=== PATIENT | male | born 1960 | race Caucasian/White ===

== ENCOUNTER 2020-07-13 00:57 | Emergency (ER) | payer BC ==
[~2020-07-13] VITALS: Ht 177.8 cm; Wt 76.2 kg
[~2020-07-13 00:57] MED LIST: UNKNOWN BP MED
--- NOTE | 2020-07-13 01:00 | NUR ---
PT BIBWIFE C/O DIZZINESS X2HR LEGAL OFFICER. PT ALSO C/O NAUSEA/VOMITTING AND INTERMITTENT DIAPHORESIS. PT DENIES CP, SOB. PT AAOX4. VITAL SIGNS STABLE. RESPIRATIONS EVEN AND UNLABORED. SKIN INTACT. NO ACUTE DISTRESS NOTED AT THIS TIME. PLACED IN GOWN AND ON MONITOR, WILL CONTINUE TO MONITOR
--- NOTE | 2020-07-13 01:23 | NUR ---
IV INITIATED RAC 18G. LABS DRAWN FROM SITE. UI ARCHITECT AT BEDSIDE FOR COLLECTION. IV INTACT AND PATENT, PLACED ON SALINE LOCK
[2020-07-13 01:26] LABS: BASOPHILS # (AUTO) 0.1 /CMM (0.0-0.2); BASOPHILS % (AUTO) 0.8 % (0.0-2.0); EOSINOPHILS % (AUTO) 7.7 % (0.0-6.0); HEMATOCRIT 45 % (39-51); HEMOGLOBIN 15.1 g/dL (13.5-17.5); LYMPHOCYTES # (AUTO) 2.4 /CMM (0.8-4.8); LYMPHOCYTES % (AUTO) 32.6 % (20.0-44.0); MEAN CORPUSCULAR HGB CONC 34 g/dl (31.0-36.0); MEAN CORPUSCULAR VOLUME 91 fL (80-96); MONOCYTES # (AUTO) 0.7 /CMM (0.1-1.30); NEUTROPHILS # (AUTO) 3.7 /CMM (1.8-8.9); NEUTROPHILS % (AUTO) 49.9 % (43.0-81.0); PLATELET COUNT (AUTO) 199 /CMM (150-450); RED BLOOD CELL COUNT(AUTO) 4.92 MIL/uL (4.5-6.0); WHITE BLOOD COUNT (AUTO) 7.5 K/uL (4.3-11.0)
[2020-07-13] MEDS ORDERED: MECLIZINE HCL 12.5 MG TABLET PO ONE (01:30)
[2020-07-13] MEDS ORDERED: ONDANSETRON HCL/PF 4 MG/2 ML VIAL IVP ONE (01:30)
[2020-07-13] MEDS ORDERED: IV NS 0.9% 1,000 ML BAG IV ONE (01:30)
--- NOTE | 2020-07-13 01:33 | NUR ---
BROUGHT BY RADIOLOGY TO CT
--- NOTE | 2020-07-13 01:39 | NUR ---
PT RETURNED FROM CT
[2020-07-13 01:43] LABS: CALCIUM, SERUM 8.7 mg/dL (8.5-10.1); CREATININE 1.2 mg/dL (0.6-1.3); POTASSIUM 3.8 mmol/L (3.5-5.1)
[2020-07-13] MEDS ORDERED: MECLIZINE HCL 25 MG TABLET ONE (01:43)
[2020-07-13] MEDS ORDERED: ONDANSETRON HCL/PF 4 MG/2 ML VIAL ONE (01:43)
[2020-07-13 01:49] LABS: ALBUMIN 3.6 g/dL (3.4-5.0); BILIRUBIN,DIRECT 0.1 mg/dL (0.0-0.2); BILIRUBIN,TOTAL 0.4 mg/dL (0.2-1.0); TOTAL PROTEIN, SERUM 6.9 g/dL (6.4-8.2)
[2020-07-13] MEDS ORDERED: HYDROCODONE/APAP 5/325MG TABLET ONE (02:16)
[2020-07-13 02:27] VITALS: BP 154/99
--- NOTE | 2020-07-13 02:27 | NUR ---
Patient discharged to home in stable condition. Written and verbal after care instructions given. Patient verbalizes understanding of instruction.IV removed. Catheter intact and site benign. Pressure and 4x4 applied to site. No bleeding noted.Pt ambulatory with a steady gait
[2020-07-13] MEDS ORDERED: HYDROCODONE/APAP 5/325MG TABLET PO ONE (02:30)
== END 2020-07-13 02:28 | disposition home or self-care (01) ==
LOC: ER 00:57
DX: R42 Dizziness and giddiness (principal); R51.9 Headache, unspecified; I10 Essential (primary) hypertension; E78.00 Pure hypercholesterolemia, unspecified
CPT/HCPCS: 36415; 70450; 80048; 80076; 85025; 93005; 96361; 96374; 99285; J2405; J7030; J8597